=== PATIENT | male | born 1985 | race Hispanic/Latino ===

== ENCOUNTER 2025-03-08 14:49 | Inpatient (IN) | payer OTHER ==
[~2025-03-08] VITALS: Ht 180.3 cm; Wt 120.2 kg
[~2025-03-08 14:49] MED LIST: ALLOPURINOL100 MG PO; MELOXICAM7.5 MG PO; METFORMIN HCL500 MG PO; METRONIDAZOLE500 MG PO; NORCO 7.5-3251 EACH PO; NORVASC5 MG PO; TRAMADOL-ACETAMI1 EA PO; XARELTO20 MG PO
[2025-03-08 15:33] LABS: BASOPHILS # (AUTO) 0.1 (0.0-0.1); BASOPHILS % 0.5 % (0.0-1.0); EOSINOPHILS # (AUTO) 0.1 (0.0-0.4); EOSINOPHILS % 0.8 % (0.0-6.0); HEMATOCRIT 48.7 % (38.2-49.6); HEMOGLOBIN 18.2 g/dL (14.0-18.0); LYMPHOCYTES # (AUTO) 1.2 (1.0-3.2); LYMPHOCYTES % 10.5 % (18.0-39.1); MEAN CORPUSCULAR HEMOGLOBIN 32.4 pg (28-32); MEAN CORPUSCULAR HGB CONC 37.4 g/dL (31-35); MEAN CORPUSCULAR VOLUME 86.8 fL (81-99); MONOCYTES # (AUTO) 0.5 (0.2-0.8); NEUTROPHILS # (AUTO) 9.4 (2.1-6.9); NEUTROPHILS % 83.6 % (38.7-80.0); PLATELET COUNT 195 x10e3/uL (140-360); RED BLOOD COUNT 5.61 x10e6/uL (4.3-5.7); RED CELL DISTRIBUTION WIDTH 11.9 % (11.7-14.4); WHITE BLOOD COUNT 11.28 x10e3/uL (4.8-10.8)
[2025-03-08 15:45] LABS: INR 1.04; PROTHROMBIN TIME 14.2 seconds (11.9-14.5)
[2025-03-08 15:46] LABS: PARTIAL THROMBOPLASTIN TIME 24.7 seconds (23.8-35.5)
[2025-03-08 15:55] LABS: ALBUMIN/GLOBULIN RATIO 1.1 (0.8-2.0); CALCIUM 9.4 mg/dL (8.4-10.2); CREATININE, SERUM 1.11 mg/dL (0.72-1.25); TOTAL PROTEIN 7.8 g/dL (6.5-8.1)
[2025-03-08] MEDS: ONDANSETRON HCL INJ 2MG/ML 2ML 2 MG/ML VIAL IV STA (15:55)
[2025-03-08] MEDS: SODIUM CHLORIDE 0.9% IV SCH (15:55)
[2025-03-08] MEDS: Morphine 4mg INJECTION 4 MG/ML INJ IV STA (15:55)
[2025-03-08] MEDS ORDERED: IOPAMIDOL 370 MG/ML 100 ML INFUS..BTL INJ ONE (16:00)
[2025-03-08 17:35] LABS: CLARITY,URINE HAZY (CLEAR); COLOR,URINE YELLOW (YELLOW); PH,URINE 5.5 (5 - 7)
[2025-03-08] MEDS: DICYCLOMINE HCL 20 MG/2 ML VIAL IM ONE (17:35)
[2025-03-08 17:36] LABS: BILIRUBIN,URINE NEGATIVE (NEGATIVE); GLUCOSE, URINE >=1000 (NEGATIVE); KETONES,URINE 2+ (NEGATIVE); LEUKOCYTE ESTERASE ,URINE NEGATIVE (NEGATIVE); NITRITE,URINE NEGATIVE (NEGATIVE); PROTEIN,URINE DIPSTICK 1+ (NEGATIVE); URINE UROBILINOGEN 0.2 mg/dL (0.2 - 1)
[2025-03-08 17:38] LABS: BACTERIA,URINE FEW /HPF; EPITHELIAL CELLS,URINE FEW /LPF; RBC,URINE 0-5 /HPF (0-5); WBC,URINE (MAN) 0-5 /HPF (0-5)
[2025-03-08] MEDS ORDERED: DEXTROSE 50% SYRINGE 50 ML IV PRN (19:00)
[2025-03-08] MEDS: SODIUM CHLORIDE 0.9% 1000ML 1,000 ML IV SCH (19:35)
[2025-03-08] MEDS: ACETAMINOPHEN 325 MG TAB PO PRN (19:35)
[2025-03-08] MEDS: ONDANSETRON HCL INJ 2MG/ML 2ML 2 MG/ML VIAL IV PRN (20:09)
[2025-03-08] MEDS: Morphine 4mg INJECTION 4 MG/ML INJ IV PRN (20:10)
[2025-03-08 20:57] VITALS: PULSE 98; RESP 19; TEMP 99
[2025-03-08 21:09] VITALS: BP 156/97; PULSE 92; RESP 20; TEMP 98.9; O2SAT 99
[2025-03-08 22:00] VITALS: BP 156/97; PULSE 92; RESP 20; TEMP 98.9; O2SAT 97
[2025-03-09] VITALS (12 sets, daily range): BP systolic 120–164; BP diastolic 77–97; PULSE 77–103; RESP 17–21; TEMP 97.6–100.5; O2SAT 97–100
[2025-03-09] MEDS: METFORMIN HCL 500 MG TAB PO SCH ×2 (00:36→16:48)
[2025-03-09 05:19] LABS: BASOPHILS % 0.5 % (0.0-1.0); EOSINOPHILS # (AUTO) 0.1 (0.0-0.4); EOSINOPHILS % 1.3 % (0.0-6.0); HEMATOCRIT 41.8 % (38.2-49.6); HEMOGLOBIN 15.4 g/dL (14.0-18.0); LYMPHOCYTES # (AUTO) 1.1 (1.0-3.2); LYMPHOCYTES % 13.5 % (18.0-39.1); MEAN CORPUSCULAR HEMOGLOBIN 32.6 pg (28-32); MEAN CORPUSCULAR HGB CONC 36.8 g/dL (31-35); MEAN CORPUSCULAR VOLUME 88.4 fL (81-99); MONOCYTES # (AUTO) 0.5 (0.2-0.8); MONOCYTES % 5.5 % (4.4-11.3); NEUTROPHILS # (AUTO) 6.5 (2.1-6.9); PLATELET COUNT 158 x10e3/uL (140-360); RED BLOOD COUNT 4.73 x10e6/uL (4.3-5.7); RED CELL DISTRIBUTION WIDTH 11.9 % (11.7-14.4); WHITE BLOOD COUNT 8.31 x10e3/uL (4.8-10.8)
[2025-03-09 05:58] LABS: ALBUMIN 3.5 g/dL (3.5-5.0); ALBUMIN/GLOBULIN RATIO 1.3 (0.8-2.0); BILIRUBIN,TOTAL 0.7 mg/dL (0.2-1.2); CALCIUM 8.5 mg/dL (8.4-10.2); CREATININE, SERUM 0.86 mg/dL (0.72-1.25); TOTAL PROTEIN 6.3 g/dL (6.5-8.1)
[2025-03-09] MEDS ORDERED: DEXTROSE 50% SYRINGE 50 ML IV PRN (07:45)
[2025-03-09] MEDS ORDERED: HYDRALAZINE HCL 20 MG/ML VIAL IV PRN (07:45)
[2025-03-09] MEDS: LISINOPRIL 2.5 MG TAB PO SCH (09:24)
[2025-03-09 11:15] LABS: CDIFF AG QUIK CHEK NEGATIVE (NEGATIVE)
[2025-03-09 11:16] LABS: CDIFF TOX QUIK CHEK NEGATIVE (NEGATIVE)
[2025-03-09] MEDS: INSULIN LISPRO 100 UNIT/1 ML 3ML VIAL SQ SCH (11:57)
[2025-03-10] VITALS (8 sets, daily range): BP systolic 123–166; BP diastolic 83–96; PULSE 74–92; RESP 17–20; TEMP 98–99; O2SAT 97–100
[2025-03-10] MEDS: LISINOPRIL 2.5 MG TAB PO SCH (23:53)
[2025-03-11] VITALS: BP 131/72; PULSE 70; RESP 20; TEMP 98; O2SAT 100
[2025-03-11 01:20] VITALS: BP 141/96; PULSE 77; RESP 17; TEMP 98.4; O2SAT 97
[2025-03-11 04:00] VITALS: BP 133/89; PULSE 73; RESP 20; TEMP 98; O2SAT 100
[2025-03-11 08:00] VITALS: BP 140/96; PULSE 78; RESP 19; TEMP 97.8; O2SAT 99
[2025-03-11 09:00] VITALS: BP 133/89; PULSE 73; RESP 20; TEMP 98; O2SAT 100
[2025-03-11 12:00] VITALS: BP 143/83; PULSE 79; RESP 20; TEMP 98.3; O2SAT 97
[2025-03-11] MEDS ORDERED: LISINOPRIL10 MG PO (13:29)
[2025-03-11] MEDS ORDERED: JANUVIA100 MG PO (13:29)
[2025-03-11] MEDS ORDERED: METFORMIN HCL500 MG PO (13:29)
[2025-03-11] MEDS ORDERED: ATORVASTATIN CA10 MG PO (13:29)
== END 2025-03-11 14:51 | disposition home or self-care (01) | DRG 394 ==
LOC: ER 15:16 → ERHOLD 18:48 → MED/SURG2 21:28 → OBSVTOIN 03-09 08:24
PROVIDERS: ADMIT Internal Medicine; ATTEND Internal Medicine
DX: K43.2 Incisional hernia without obstruction or gangrene (principal); R65.10 Systemic inflammatory response syndrome (SIRS) of non-infectious origin without acute organ dysfunction; E11.65 Type 2 diabetes mellitus with hyperglycemia; E86.0 Dehydration; I10 Essential (primary) hypertension; R19.7 Diarrhea, unspecified; R11.2 Nausea with vomiting, unspecified; E66.01 Morbid (severe) obesity due to excess calories; Z68.37 Body mass index [BMI] 37.0-37.9, adult; Z79.01 Long term (current) use of anticoagulants; Z79.84 Long term (current) use of oral hypoglycemic drugs; Z90.49 Acquired absence of other specified parts of digestive tract
CPT/HCPCS: 36415; 71045; 74177; 80053; 81001; 82948; 83036; 83605; 84484; 85025; 85610; 85730; 87040; 87086; 87324; 87449; 93005; 99284; G0378; J2270; J2405; J2470; J2543; J7030; Q9967

== ENCOUNTER 2025-08-16 11:52 | Emergency (ER) | payer OTHER ==
[~2025-08-16] VITALS: Ht 180.3 cm; Wt 120.2 kg
[~2025-08-16 11:52] MED LIST changes: +ATORVASTATIN CA10 MG PO; +JANUVIA100 MG PO; +LISINOPRIL10 MG PO
[2025-08-16 11:55] VITALS: TEMP 98.7
[2025-08-16 12:40] LABS: BASOPHILS % 0.5 % (0.0-1.0); EOSINOPHILS % 2.4 % (0.0-6.0); LYMPHOCYTES % 17.7 % (18.0-39.1); MONOCYTES % 3.9 % (4.4-11.3); NEUTROPHILS % 74.7 % (38.7-80.0); RED CELL DISTRIBUTION WIDTH 12.5 % (11.7-14.4)
[2025-08-16 13:00] LABS: EST GLOMERULAR FILTRATION RATE 115.0 ML/MIN (>=60)
[2025-08-16] MEDS: CLONIDINE HCL 0.1 MG TAB PO ONE (13:23)
[2025-08-16] MEDS: PREDNISONE 20 MG TAB PO ONE (13:23)
[2025-08-16 14:30] VITALS: PULSE 68; RESP 16
[2025-08-16] MEDS ORDERED: VALACYCLOVIR1000 MG PO (14:42)
[2025-08-16] MEDS ORDERED: PREDNISONE20 MG PO (14:42)
[2025-08-16 15:01] VITALS: BP 149/95; PULSE 71; RESP 18; TEMP 98.3; O2SAT 99
== END 2025-08-16 15:03 | disposition home or self-care (01) ==
LOC: ER 12:07
DX: G51.0 Bell's palsy (principal); I10 Essential (primary) hypertension; E11.65 Type 2 diabetes mellitus with hyperglycemia; F32.A Depression, unspecified; Z98.0 Intestinal bypass and anastomosis status
CPT/HCPCS: 36415; 70450; 80053; 84484; 85025; 93005; 99284; J7512